=== PATIENT | female | born 2000 | race Caucasian/White ===

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

== ENCOUNTER → 2018-05-17 | Outpatient (CLI) | payer OTHER ==
[2018-05-17 14:11] LABS: CONTROL LINE HCG INT CTR LINE PRESENT; CONTROL LINE MONO INT CTR LINE PRESENT; HCG, SERUM QUALITATIVE NEGATIVE (NEGATIVE); MONO SCRN NEGATIVE (NEGATIVE)
[2018-05-17 14:21] LABS: HCG, SERUM QUANTITATIVE < 1.0 MIU/ML
== END ==
LOC: M LAB 13:08
DX: R11.0 Nausea (principal)
CPT/HCPCS: 84703

== ENCOUNTER → 2018-06-21 | Outpatient (REF) | payer OTHER ==
[2018-06-21 21:01] LABS: CHLAMYDIA DNA AMPLIFICATION NEGATIVE (NEGATIVE); GC DNA AMPLIFICATION NEGATIVE (NEGATIVE)
== END ==
LOC: M LAB REF 17:12
DX: Z11.3 Encounter for screening for infections with a predominantly sexual mode of transmission (principal)

== ENCOUNTER → 2018-06-21 | Outpatient (CLI) | payer OTHER ==
[2018-06-22 10:59] LABS: HEPATITIS C VIRUS ABY INDEX < 0.0 INDEX (<0.8)
[2018-06-22 10:59] LABS: HEPATITIS A ANTIBODY IGM NEGATIVE (NEGATIVE); HEPATITIS B CORE ANTIBODY IGM NEGATIVE (NEGATIVE); HEPATITIS B SURFACE ANTIGEN NEGATIVE (NEGATIVE); HIV 1&2 SCREEN CENTAUR NEGATIVE (NEGATIVE)
== END ==
LOC: M SMT 14:40
DX: Z11.3 Encounter for screening for infections with a predominantly sexual mode of transmission (principal)
CPT/HCPCS: 87340

== ENCOUNTER 2018-10-20 13:26 | Emergency (ER) | payer OTHER ==
[~2018-10-20] VITALS: Ht 160 cm; Wt 50.2 kg
[~2018-10-20 13:26] MED LIST: ARIP5TA PO; CELE10TA PO; DIPH25CA PO; EFFE37.5 PO; NUVAMIS2 PV; RANI1TAB6 PO; TRAZ-160 PO; VIST25CA PO
[2018-10-20] MEDS ORDERED: LAMO25TA4 PO (13:37)
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
[2018-10-20 16:13] VITALS: BP 116/66
== END 2018-10-20 16:29 | disposition home or self-care (01) ==
LOC: M ED 13:26
DX: S09.90XA Unspecified injury of head, initial encounter (principal); S13.4XXA Sprain of ligaments of cervical spine, initial encounter; V48.5XXA Car driver injured in noncollision transport accident in traffic accident, initial encounter; Y92.410 Unspecified street and highway as the place of occurrence of the external cause; F41.9 Anxiety disorder, unspecified; F32.9 Major depressive disorder, single episode, unspecified; F17.200 Nicotine dependence, unspecified, uncomplicated; Z91.018 Allergy to other foods; Z79.899 Other long term (current) drug therapy

== ENCOUNTER → 2020-04-09 | Outpatient (REF) | payer OTHER, BC ==
[~2020-04-09] MED LIST changes: +ARIP1TAB6 PO; -ARIP5TA PO; -DIPH25CA PO; +DIPH25CA32 PO; +LAMO25TA4 PO; +RANI-397 PO; -RANI1TAB6 PO; -TRAZ-160 PO; +TRAZ-252 PO
[2020-05-10 14:16] LABS: CHLAMYDIA DNA AMPLIFICATION POSITIVE (NEGATIVE); GC DNA AMPLIFICATION NEGATIVE (NEGATIVE)
== END ==
LOC: M LAB REF 10:23
PROVIDERS: ATTEND Physician Assistant Medical
DX: Z11.3 Encounter for screening for infections with a predominantly sexual mode of transmission (principal)

== ENCOUNTER → 2020-04-27 | Outpatient (CLI) | payer OTHER, SELFPAY | LOC: M LABSMTC 10:56 | PROVIDERS: ATTEND Pediatrics | DX: Z11.59 Encounter for screening for other viral diseases (principal) ==

== ENCOUNTER → 2020-06-28 | Outpatient (CLI) | payer BC, OTHER | LOC: M LABSMTC 13:29 | PROVIDERS: ATTEND Family Medicine | DX: Z20.828 Contact with and (suspected) exposure to other viral communicable diseases (principal) | CPT/HCPCS: C9803; U0003 ==

== ENCOUNTER → 2021-02-26 | Outpatient (CLI) | payer SELFPAY | LOC: M LABSMTC 11:01 | PROVIDERS: ATTEND Pediatrics | DX: Z11.52 Encounter for screening for COVID-19 (principal) ==

== ENCOUNTER → 2022-12-23 | Outpatient (REF) | payer BC, OTHER ==
[~2022-12-23] MED LIST changes: +DIPH-435 PO; -DIPH25CA32 PO; +ETON1VAG7 PV; -NUVAMIS2 PV
== END ==
LOC: M LAB REF 18:23
PROVIDERS: ATTEND Physician Assistant
DX: B34.9 Viral infection, unspecified (principal)

== ENCOUNTER → 2024-01-18 | Outpatient (REF) | payer BC, OTHER ==
[~2024-01-18] MED LIST changes: -EFFE37.5 PO; +EFFE37.52 PO
== END ==
LOC: M LAB REF 20:56
PROVIDERS: ATTEND Physician Assistant
DX: J02.9 Acute pharyngitis, unspecified (principal)

== ENCOUNTER → 2025-06-21 | Outpatient (REF) | payer BC, OTHER ==
[~2025-06-21] MED LIST changes: +LAMO-18 PO; -LAMO25TA4 PO
== END ==
LOC: M LAB REF 17:04
PROVIDERS: ATTEND Physician Assistant
DX: B34.9 Viral infection, unspecified (principal)

== ENCOUNTER → 2025-06-25 | Outpatient (REF) | payer OTHER | LOC: M PLALAB 11:40 | PROVIDERS: ATTEND Obstetrics & Gynecology | DX: Z3A.11 11 weeks gestation of pregnancy (principal) ==

== ENCOUNTER → 2025-07-09 | Outpatient (CLI) | payer OTHER ==
[2025-07-09 16:28] LABS: PLATELET COUNT, AUTOMATED 422 10^3/uL (150-450)
[2025-07-09 17:17] LABS: HIV 1&2 SCREEN NEGATIVE (NEGATIVE)
[2025-07-09 17:24] LABS: HEPATITIS C VIRUS ABY INDEX < 0.02 INDEX (<0.8)
[2025-07-09 17:32] LABS: Trichomonas vaginalis (AMP) NOT DETECTED (NEGATIVE)
[2025-07-09 17:56] LABS: GC DNA AMPLIFICATION NEGATIVE (NEGATIVE)
== END ==
LOC: M LAB 15:16
PROVIDERS: ATTEND Obstetrics & Gynecology
DX: Z36.89 Encounter for other specified antenatal screening (principal); Z3A.11 11 weeks gestation of pregnancy